=== PATIENT | male | born 1990 | race Caucasian/White ===

== ENCOUNTER 2017-08-02 16:18 | Emergency (ER) | payer OTHER, SELFPAY ==
[2017-08-02] MEDS ORDERED: DERMABOND SKIN ADHESIVE TOP ONE ×2 (16:37→16:51)
--- NOTE | 2017-08-02 17:09 | ER ---
Nurse's Notes [facility] Name: Jayson Cummings Age: 27 yrs Sex: Male : 1990 Arrival Date: 08/02/2017 Time: 16:20 Bed 11 Private MD: Diagnosis: Laceration without foreign body of right middle finger without damage to nail Presentation: 08/02 16:22 Presenting complaint: Patient states: in the OR changing lights and the fixture was tw2 really sharp and cut my middle finger right on the knuckle. Transition of care: patient was not received from another setting of care. Complicating Factors: There are no complicating factors for this patient. Onset of symptoms was August 02, 2017. Care prior to arrival: None. 16:22 Method Of Arrival: Ambulatory tw2 16:22 Acuity: CHERI 4 tw2 Historical: - Allergies: 16:22 No Known Allergies; tw2 - Home Meds: 16:22 None [Active]; tw2 - PMHx: 16:22 None; tw2 - PSHx: 16:22 None; tw2 - Immunization history:: Last tetanus immunization: unknown. - Social history:: Smoking status: Patient uses tobacco products, 5 cigarettes a day. - Family history:: not pertinent. - Hospitalizations: : No recent hospitalization is reported. Screenin:43 Abuse screen: Denies threats or abuse. Denies injuries from another. Nutritional aj1 screening: No deficits noted. Tuberculosis screening: No symptoms or risk factors identified. 17:20 Fall Risk None identified. iw Assessment: 16:43 General: Appears in no apparent distress. comfortable, Behavior is calm, cooperative, aj1 appropriate for age. Pain: Complains of pain in dorsal aspect of middle phalanx of right middle finger. Neuro: Level of Consciousness is awake, alert, obeys commands, Oriented to person, place, time, situation, Speech is normal, Facial symmetry appears normal. Cardiovascular: Patient's skin is warm and dry. Respiratory: Airway is patent Respiratory effort is even, unlabored, Respiratory pattern is regular, symmetrical. GI: No signs and/or symptoms were reported involving the gastrointestinal system. : No signs and/or symptoms were reported regarding the genitourinary system. EENT: No signs and/or symptoms were reported regarding the EENT system. Derm: Skin is pink, warm \T\ dry. normal. Musculoskeletal: Circulation, motion, and sensation intact. Injury Description: Laceration sustained to dorsal aspect of middle phalanx of right middle finger is 0.5 to 2.5 cm long, is bleeding a small amount. Vital Signs: 16:23 BP 147 / 95; Pulse 84; Resp 18; Temp 98.6; Pulse Ox 100% on R/A; Weight 58.97 kg (R); tw2 Height 6 ft. 2 in. (187.96 cm) (R); Pain 1/10; 16:23 Body Mass Index 16.69 (58.97 kg, 187.96 cm) tw2 ED Course: 16:20 Patient arrived in ED. as 16:22 Arm band placed on. tw2 16:23 Triage completed. tw2 16:27 Gissel Vu RN is Primary Nurse. aj1 16:29 Shree Meyers MD is Attending Physician. rn 16:42 Report given to Krista Back RN. aj1 16:43 Patient has correct armband on for positive identification. Call light in reach. aj1 16:43 No provider procedures requiring assistance completed. aj1 17:20 Assist provider with laceration repair on dorsal aspect of middle phalanx of right iw middle finger that was 2.5 cm. or less using Dermabond. Set up tray. Performed by Shree Meyers MD Dressed with 4X4s, Patient tolerated well. 17:35 Patient did not have IV access during this emergency room visit. iw 17:36 Iman Back RN is Primary Nurse. 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 Exp: iw 01/19/2019. Lot #: [id number]. } Route: IM; Site: left deltoid; Outcome: 17:08 Discharge ordered by . rn 17:35 Discharged to home ambulatory. iw 17:35 Condition: good 17:35 Discharge instructions given to patient, Instructed on discharge instructions, follow up and referral plans. Demonstrated understanding of instructions, follow-up care. 17:37 Patient left the ED. iw Signatures: Gissel Vu RN RN aj1 Sakshi Cullen as Iman Back RN RN Shree Meyers MD MD rn Wise, Tara, RN RN tw2
--- NOTE | 2017-08-02 17:09 | EDPHYS ---
Physician Documentation [facility] Name: Jayson Cummings Age: 27 yrs Sex: Male : 1990 Arrival Date: 08/02/2017 Time: 16:20 Bed 11 Private MD: ED Physician Shree Meyers HPI: 08/02 17:03 This 27 yrs old Male presents to ER via Ambulatory with complaints of rn Laceration - Finger. 17:03 The patient or guardian reports injury, a laceration. The complaints affect the DIP of rn right middle finger. Onset: The symptoms/episode began/occurred just prior to arrival. Severity of symptoms: At their worst the symptoms were mild, in the emergency department the symptoms have improved. The patient has not experienced similar symptoms in the past. Reports changing light bulb on fixture in OR, mild bleeding, unknown tetanus. . Historical: - Allergies: 16:22 No Known Allergies; tw2 - Home Meds: 16:22 None [Active]; tw2 - PMHx: 16:22 None; tw2 - PSHx: 16:22 None; tw2 - Immunization history:: Last tetanus immunization: unknown. - Social history:: Smoking status: Patient uses tobacco products, 5 cigarettes a day. - Family history:: not pertinent. - Hospitalizations: : No recent hospitalization is reported. ROS: 17:03 Constitutional: Negative for fever, chills, and weight loss, Skin: + laceration to rn right middle finger Exam: 17:03 Constitutional: This is a well developed, well nourished patient who is awake, alert, rn and in no acute distress. MS/ Extremity: Pulses equal, no cyanosis. Neurovascular intact. Full, normal range of motion. Equal circumference. + 1cm superficial laceration dorsum of right 3rd digit on top of DIP, no active bleeding, no foreign body. Vital Signs: 16:23 BP 147 / 95; Pulse 84; Resp 18; Temp 98.6; Pulse Ox 100% on R/A; Weight 58.97 kg (R); tw2 Height 6 ft. 2 in. (187.96 cm) (R); Pain 1/10; 16:23 Body Mass Index 16.69 (58.97 kg, 187.96 cm) tw2 Laceration: 17:03 Wound Repair of 1cm ( 0.4in ) subcutaneous laceration to DIP of right middle finger. rn Distal neuro/vascular/tendon intact. Wound prep: Moderate cleansing with betadine by nurse, Wound explored. Skin closed with 1 thin layer Adhesive skin closure using Dermabond. Dressed with steri-strips. Patient tolerated well. MDM: 16:29 Patient medically screened. rn 17:03 Differential diagnosis: laceration. Data reviewed: vital signs, nurses notes, and as a rn result, I will discharge patient. Counseling: I had a detailed discussion with the patient and/or guardian regarding: the historical points, exam findings, and any diagnostic results supporting the discharge/admit diagnosis, the need for outpatient follow up, to return to the emergency department if symptoms worsen or persist or if there are any questions or concerns that arise at home. 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 Exp: iw 01/19/2019. Lot #: [id number]. } Route: IM; Site: left deltoid; Disposition: 08/02/17 17:08 Discharged to Home. Impression: Laceration without foreign body of right middle finger without damage to nail. - Condition is Stable. - Discharge Instructions: Laceration Care, Adult. - Medication Reconciliation Form, Thank You Letter, Antibiotic Education, Prescription Opioid Use form. - Follow up: Private Physician; When: As needed; Reason: Recheck today's complaints, Re-evaluation by your physician. - Problem is new. - Symptoms have improved. Signatures: Iman Back, RN Shree Castaneda MD MD rn Wise, Tara, RN RN tw2
[2017-08-02] MEDS ORDERED: TETANUS & DIPHTHERIA TOX,ADULT 0.5 ML VIAL ONE (17:29)
== END 2017-08-02 17:37 | disposition home or self-care (01) ==
LOC: ER 16:18
PROC: 0JQJ0ZZ Repair Right Hand Subcutaneous Tissue and Fascia, Open Approach (ICD-10-PCS; principal; 2017-08-02)
DX: S61.212A Laceration without foreign body of right middle finger without damage to nail, initial encounter (principal); W25.XXXA Contact with sharp glass, initial encounter; Y93.9 Activity, unspecified; Y92.009 Unspecified place in unspecified non-institutional (private) residence as the place of occurrence of the external cause; F17.210 Nicotine dependence, cigarettes, uncomplicated
CPT/HCPCS: 90714; 99283